=== PATIENT | male | born 1955 | race Caucasian/White ===

== ENCOUNTER → 2020-09-16 11:00 | Outpatient (CLI) | payer MEDICARE, BC, SELFPAY ==
--- NOTE | 2020-09-16 11:03 | CA_ITS ---
APPROVED REPORT EXAM: Comprehensive 2D, Doppler, and color-flow Echocardiogram Gate Tender: Angelique Sanon RT(R) Ht: 6 ft 0 in Wt: 240lbs BSA: 2.30 BP: 114/65 mmHg Indications: cp, smoker, edema, HTN, DM, SOB, AFIB, stents, GERD Echo Enhancing Agent Indication: Endocardial border delineation Agent(s) / Amount(s) Used: Definity 2 cc 2D Dimensions LVOT 1.98 cm (M/F) 1.5-2.5 LVEF (Sal's) 26.90 % M: 52 - 72 LV Volume 134.30 mL M: 62 - 150 LV Volume Index 58.39 mL/m2 M: 34 - 74 LA Volume 96.20 mL LA Volume Index 41.82 mL/m2 (M/F) 16-34 M-Mode Dimensions RVDd 2.81 cm (0.9-2.6) LA Diam 4.90 cm (1.9-4.0) LVDd 4.45 cm (3.5-5.7) Ao Diam 3.53 cm (2.0-3.7) LVDs 3.93 cm (3.5-5.7) IVSd 1.50 cm (0.6-1.1) PWd 0.66 cm (0.6-1.1) EF (Teich) 25.50% FS 11.70% EDV (Teich) 90.10 mL ESV (Teich) 67.10 mL Left Ventricle Technically difficult study because of the patient factors and poor acoustic windows. Definity contrast was utilized to delineate the endocardial surfaces. Left atrium is mildly enlarged, left ventricle is normal size, mild concentric left ventricular hypertrophy, visually estimated ejection fraction approximately 40%, there is marked hypokinesis involving the posterior lateral wall, rest of the myocardial segments are globally hypokinetic. Diastolic parameters are inconclusive. There is no left ventricular thrombus seen. Right Ventricle Right atrium and right ventricle are normal size and contractility. Aortic Valve Aortic valve is thickened and calcified without Doppler evidence of aortic stenosis or aortic insufficiency. Mitral Valve Mitral valve leaflets are minimally thickened, there is mild mitral regurgitation. Tricuspid Valve Tricuspid valve grossly normal, there is mild tricuspid regurgitation, tricuspid regurgitation jet velocity is inadequate for calculation of the right ventricular systolic pressure. Pulmonic Valve Pulmonic valve is poorly visualized. Conclusion 1. Mildly enlarged left atrium, normal left ventricular size, mild concentric left ventricular hypertrophy, visually estimated ejection fraction 40% with segmental wall motion abnormality described above, diastolic parameters are inconclusive. Definity contrast was utilized to delineate the endocardial surfaces, there is no left ventricular thrombus seen. 2. Thickened and calcified aortic valve without aortic stenosis or aortic insufficiency. 3. Mild mitral and tricuspid regurgitation. 4. No significant pericardial effusion noted. Electronically signed by : Jovon Foss, 09/16/2020 21:07:06
[2020-09-16 17:15] LABS: Basophils # 0.1 K/mm3 (0-0.2); Basophils % 1.1 % (0.1-2.0); Eosinophils # 0.4 K/mm3 (0.0-0.4); Hematocrit 36.5 % (42.0-52.0); Hemoglobin 10.8 g/dL (14.1-18.0); Lymphocytes # 2.1 K/mm3 (0.7-4.5); Lymphocytes % 20.6 % (10-50); Mean Corpuscular HGB Conc 29.6 g/dL (31.8-35.4); Mean Corpuscular Hemoglobin 22.1 pg (27.0-31.2); Mean Corpuscular Volume 74.8 fl (80-94); Mean Platelet Volume 7.5 fl (7.4-10.4); Monocytes # 0.7 K/mm3 (0.1-1.0); Monocytes % 6.8 % (1.7-9.3); Neutrophils # 6.8 K/mm3 (1.8-7.8); Neutrophils % 67.4 % (37.0-80.0); Platelet Count 288 K/mm3 (142-424); Red Blood Count 4.88 M/mm3 (4.60-6.20); Red Cell Distribution Width 17.8 % (11.5-17.5)
[2020-09-16 17:18] LABS: Chloride 95 mmol/L (98-107)
[2020-09-16 17:19] LABS: Potassium 5.2 mmoL/L (3.5-5.1); Sodium 137 mmol/L (136-145)
[2020-09-16 17:22] LABS: Anion Gap 16.2 mEq/L (5-15); Blood Urea Nitrogen 13 mg/dl (9-20); Calcium 9.2 mg/dl (8.4-10.2); Carbon Dioxide 31 mmol/L (22.0-30.0); Estimated Glomerular Filt Rate 84 ml/min (>60); GFR (African American) 102 ML/MIN (>60); Glucose 148 mg/dl (74-100)
== END ==
PROVIDERS: Internal Medicine Cardiovascular Disease; PCP Family Medicine; Visit Provider Family Medicine
DX: I48.19 Other persistent atrial fibrillation; R06.00 Dyspnea, unspecified; R07.89 Other chest pain; R61 Generalized hyperhidrosis; Z01.812 Encounter for preprocedural laboratory examination; Z20.822 Contact with and (suspected) exposure to COVID-19; I20.8 Other forms of angina pectoris
CPT/HCPCS: 80048; 85025; 93306; Q9957; U0003

== ENCOUNTER 2020-09-17 08:16 | Day surgery (SDC) | payer MEDICARE, BC, SELFPAY ==
[2020-09-17] VITALS (12 sets, daily range): BP systolic 108–150; BP diastolic 54–90; PULSE 81–106; RESP 17–18; O2SAT 93–99; BMI 32.5
--- NOTE | 2020-09-17 | IR_ITS ---
APPROVED REPORT Patient Location: Outpatient Lumber Tallier: LALITA Mei RT (R) PROCEDURES Left heart catheterization Left ventriculogram Selective coronary angiogram INDICATION Worsening angina pectoris, Chronic atrial fibrillation Informed consent was obtained prior to the procedure. COMPLICATIONS None Estimated Blood Loss: Less than 10 mls TECHNIQUE One percent lidocaine used to anesthetize the right anterior aspect of the wrist. The right radial artery was accessed via the Seldinger technique. A 6 Monegasque sheath was placed in the right radial artery. 2.5 mg of verapamil, 800 mcg of nitroglycerin, 1mg Lidocaine and 5000 U Heparin were given through the arterial sheath. The trap catheter was also used to perform left heart catheterization, left ventriculogram and selective coronary angiogram. At the end of the procedure the sheath was removed good hemostasis was achieved using Traclet band, patient was transferred to the postop holding area in stable condition. ANGIOGRAPHIC RESULTS The left main artery Has a critical distal calcified greater than 90% stenosis The left anterior descending artery Has an ostial 90% stenosis followed by a proximal calcified 80% stenosis. The LAD itself is a large vessel widely patent. The first diagonal artery is patent The circumflex artery Is a dominant system and has an ostial calcified 90% stenosis most likely originating in the left main artery. The remaining vessel is widely patent with the terminal obtuse marginal artery/posterior descending artery having a proximal 80% stenosis and then subtotally occluded at mid vessel. The right coronary artery Vestigial subtotally occluded proximally The SESAY ventriculogram reveals Dilated EF 50% The left ventricular end-diastolic pressure 20 mmHg IMPRESSION Severe to critical distal left main disease as described above Dilated ventricle with ejection fraction 50% Mildly elevated LVEDP PLAN 1. Patient will be referred for CABG evaluation as soon as possible. Electronically signed by : Froylan Carbajal MD 09/17/2020 10:47:52
== END 2020-09-17 13:42 | disposition home or self-care (01) ==
LOC: CATHLAB 08:19
PROVIDERS: PCP Family Medicine; Visit Provider Internal Medicine
DX: I25.118 Atherosclerotic heart disease of native coronary artery with other forms of angina pectoris (principal); I48.20 Chronic atrial fibrillation, unspecified; E11.9 Type 2 diabetes mellitus without complications; Z79.84 Long term (current) use of oral hypoglycemic drugs; I10 Essential (primary) hypertension; K21.9 Gastro-esophageal reflux disease without esophagitis; Z79.01 Long term (current) use of anticoagulants; Z79.899 Other long term (current) drug therapy
CPT/HCPCS: 93458; 99152; C1769; J1644; Q9967

== ENCOUNTER → 2020-11-04 13:07 | Outpatient (CLI) | payer MEDICARE, BC, SELFPAY | PROVIDERS: Visit Provider Internal Medicine Cardiovascular Disease | DX: I25.708 Atherosclerosis of coronary artery bypass graft(s), unspecified, with other forms of angina pectoris; I48.19 Other persistent atrial fibrillation; R06.00 Dyspnea, unspecified; R07.89 Other chest pain; Z86.79 Personal history of other diseases of the circulatory system; Z95.1 Presence of aortocoronary bypass graft; Z98.890 Other specified postprocedural states; Z01.812 Encounter for preprocedural laboratory examination; Z20.822 Contact with and (suspected) exposure to COVID-19 | CPT/HCPCS: C9803; U0003; U0005 ==

== ENCOUNTER 2020-11-06 07:42 | Day surgery (SDC) | payer MEDICARE, BC, SELFPAY ==
[2020-11-06 07:50] VITALS: BMI 28.0
--- NOTE | 2020-11-06 07:59 | CA_ITS ---
APPROVED REPORT EXAM: Comprehensive 2D, Doppler, and color-flow Echocardiogram Kid Club Attendant: Renee NdiayeINDERJIT Ht: 5 ft 11 in Wt: 201lbs BSA: 2.11 BP: 109/70 mmHg Indications: A-FIB/CARDIOVERSION,S/P CABG,S/P MAZE 09/19/20 Procedure After obtaining informed consent, patient underwent transesophageal echo in the Petroleum Analyst. Type of Sedation : Conscious Sedation Sedation was administered by Lyndon Garcia C.R.N.A. Transesophageal probe was inserted and advanced into esophagus without difficulty by Dr. Kevin Ramos. The JOSE was performed without complications. Synchronized Cardioversion attempted: Successful Synchronized Cardioversion acheived with 200 Joules after 1 attempt(s). Rhythm following Synchronized Cardioversion: Normal Sinus Rhythm Throughout the procedure, the blood pressure, pulse oximetry, cardiac rhythm, and rate were monitored. The patient tolerated the procedure without adverse effects. Recovery from conscious sedation was uneventful and vital signs were stable. Left Ventricle Left ventricle is normal size, mild concentric left ventricular hypertrophy, visually estimated ejection fraction of previous approximately 40 to 45% with inferior basal wall hypokinesis. Right Ventricle Right ventricle is normal size and contractility. Atria Left atrium is mildly enlarged, left atrial appendage is ligated, there is no thrombus seen in the left atrium, there is no flow in the left atrial appendage. Right atrium is normal size. Aortic Valve Aortic valve is thickened and calcified without aortic stenosis or aortic insufficiency. Mitral Valve Mitral valve has mitral annular calcification, there is no mitral stenosis, there is mild to moderate mitral regurgitation. Tricuspid Valve Tricuspid valve is grossly normal, there is mild tricuspid regurgitation. Pulmonic Valve Pulmonic valve is grossly normal. Great Vessels Aortic root is normal size. Pericardium No significant pericardial effusion noted. Conclusion 1. Mildly enlarged left atrium, left atrial appendage is ligated, there is no flow in the left atrial appendage, there is no thrombus seen. 2. Normal left ventricular size, mild concentric left ventricular hypertrophy, visually estimated ejection fraction 40 to 45% with segmental wall motion abnormality described above. 3. Mild to moderate mitral regurgitation. 4. No significant pericardial effusion noted. Other ancillary findings as described above 5. Successful electrical DC cardioversion to restore sinus rhythm. 6. Patient tolerated the procedure well. Electronically signed by : Jovon Foss MD 11/06/2020 09:07:17
[2020-11-06 08:02] VITALS: BP 141/92; PULSE 103; PULSE 106; RESP 18; TEMP 36.9; O2SAT 97
[2020-11-06 08:47] VITALS: BP 101/60; PULSE 76; RESP 20; O2SAT 90
[2020-11-06 09:18] VITALS: BP 100/66; PULSE 77; RESP 20; O2SAT 98
--- NOTE | 2020-11-06 09:31 | P.PN_ITS ---
[facility] Anesthesia Checklist - Patient Identification Patient Identification: Verbal (Name & ) - Structural Data Admitted From: Home Planned Operative Procedure/s: JOSE/Cardioversion Consent for Planned Operative Procedure(s) Verified: Yes Verified Documents: Surgical Consent - NPO Status Verified Time NPO: 00:00 - Cardiovascular Assessment Heart Sounds: S1 & S2 Pulse Rhythm: Irregular - Airway Assessment C-Spine Mobility Assessed: Yes TMJ Mobility Assessed: Yes Dentition: Good Dentition - Neurological Assessment Level of Consciousness: Awake, Alert, Appropriate - Anesthesia Plan Anesthesia Risk discussed: Yes ASA Class: III Anesthesia Type: General [facility] History Medical History: Reports:: Atrial Fibrillation, Coronary Artery Disease, Diabetes Mellitus Type 2, Gastroesophageal Reflux Disease(GERD), Hyperlipidemia, Hypertension Denies:: Cancer, Diabetes Mellitus Type 1, Internal Pacemaker, MRSA, Seizures *Have you ever received a pneumonia vaccine?: No *Have you received a flu vaccine this season?: Yes Other Medical History: Reports: Thyroid Disease Anesthesia experience/problems:: no issues Other Surgeries: Yes: CABG, Cardiac Catheterization, Coronary Stent. No: Pacemaker Amputation: No Fractures: No - *Social History Last grade of school completed: 11th or 12th Smoking Status: Never smoker Tobacco Type: cigarettes # Packs/Day (cigarettes): 1 Alcohol Intake: never Alcohol Intake Frequency:: a few times a week Substance Use Type: denies use *Occupational Status:: retired Housing: house Household Members: significant other *Travel in the last 8 weeks: None Family Hx:: Diabetes, Coronary Artery Disease, Heart Attack
== END 2020-11-06 09:21 | disposition home or self-care (01) ==
LOC: CATHLAB 07:45
PROVIDERS: PCP Family Medicine; Visit Provider Internal Medicine Cardiovascular Disease
DX: I25.708 Atherosclerosis of coronary artery bypass graft(s), unspecified, with other forms of angina pectoris (principal); I48.19 Other persistent atrial fibrillation; R06.00 Dyspnea, unspecified; R07.89 Other chest pain; Z86.79 Personal history of other diseases of the circulatory system; Z95.1 Presence of aortocoronary bypass graft; E11.9 Type 2 diabetes mellitus without complications; Z79.84 Long term (current) use of oral hypoglycemic drugs
CPT/HCPCS: 92960; 93312

== ENCOUNTER 2021-01-05 09:01 | Outpatient (RCR) | payer MEDICARE, BC, SELFPAY | END 2021-05-12 14:25 | disposition home or self-care (01) | LOC: PT 09:01 | PROVIDERS: Visit Provider Internal Medicine Cardiovascular Disease | DX: I25.810 Atherosclerosis of coronary artery bypass graft(s) without angina pectoris (principal); Z95.1 Presence of aortocoronary bypass graft | CPT/HCPCS: 93798 ==

== ENCOUNTER → 2022-04-30 09:58 | Outpatient (CLI) | payer MEDICARE, BC, SELFPAY ==
[2022-04-30 10:42] LABS: Basophils # 0.1 K/mm3 (0-0.2); Basophils % 1.1 % (0.1-2.0); Eosinophils # 0.6 K/mm3 (0.0-0.4); Eosinophils % 6.4 % (0.1-12.0); Hematocrit 36.9 % (42.0-52.0); Hemoglobin 11.6 g/dL (14.1-18.0); Lymphocytes # 1.8 K/mm3 (0.7-4.5); Lymphocytes % 20.4 % (10-50); Mean Corpuscular HGB Conc 31.6 g/dL (31.8-35.4); Mean Corpuscular Hemoglobin 25.8 pg (27.0-31.2); Mean Corpuscular Volume 81.7 fl (80-94); Mean Platelet Volume 8.4 fl (7.4-10.4); Monocytes # 0.5 K/mm3 (0.1-1.0); Monocytes % 5.5 % (1.7-9.3); Neutrophils # 5.7 K/mm3 (1.8-7.8); Neutrophils % 66.7 % (37.0-80.0); Platelet Count 336 K/mm3 (142-424); Red Blood Count 4.52 M/mm3 (4.60-6.20); Red Cell Distribution Width 16.6 % (11.5-17.5); White Blood Count 8.6 K/mm3 (4.8-10.8)
[2022-04-30 11:08] LABS: Alanine Aminotransferase 29 U/L (12-78); Albumin Level 4.2 g/dl (3.5-5.0); Alkaline Phosphatase 72 U/L (38-126); Anion Gap 14.2 mEq/L (5-15); Aspartate Amino Transferase 34 U/L (17-59); Bilirubin,Direct 0.3 mg/dl (0.0-0.4); Bilirubin,Indirect 0.8 mg/dL (0.0-0.9); Bilirubin,Total 1.1 mg/dl (0.2-1.3); Bilirubin,Unconjugated 0.8 mg/dL (0.0-1.1); Blood Urea Nitrogen 20 mg/dl (9-20); Carbon Dioxide 29 mmol/L (22.0-30.0); Chloride 101 mmol/L (98-107); Chol/HDL Ratio 3.6 (1-3.5); Cholesterol 144 mg/dl (140-200); Estimated Glomerular Filt Rate 50 ml/min (>60); GFR (African American) 61 ML/MIN (>60); Glucose 141 mg/dl (74-100); HDL Cholesterol 40 mg/dl (40-60); Potassium 4.2 mmoL/L (3.5-5.1); Sodium 140 mmol/L (136-145); Total Protein,Serum 7.2 g/dl (6.3-8.2); Triglycerides 183 mg/dl (30-150); VLDL Cholesterol 37 mg/dL (0-40)
[2022-04-30 11:18] LABS: Direct LDL Cholesterol 83.58 mg/dL (100-129)
[2022-04-30 11:24] LABS: Free T4 (Free Thyroxine) 1.14 ng/dl (0.78-2.19)
[2022-04-30 11:38] LABS: Thyroid Stimulating Hormone 6.75 uIU/mL (0.465-4.68)
== END ==
PROVIDERS: PCP Family Medicine; Visit Provider Internal Medicine Cardiovascular Disease
DX: E78.2 Mixed hyperlipidemia (principal); I25.810 Atherosclerosis of coronary artery bypass graft(s) without angina pectoris; I48.19 Other persistent atrial fibrillation; I50.22 Chronic systolic (congestive) heart failure; R94.31 Abnormal electrocardiogram [ECG] [EKG]; Z86.79 Personal history of other diseases of the circulatory system; Z95.1 Presence of aortocoronary bypass graft; Z98.890 Other specified postprocedural states
CPT/HCPCS: 36415; 80048; 80061; 80076; 83735; 84439; 84443; 85025

== ENCOUNTER → 2022-05-20 08:34 | Outpatient (CLI) | payer MEDICARE, BC, SELFPAY ==
[2022-05-20 08:44] LABS: Microscopic, Urine URINE MICROSCOPIC (MICROSCOPIC)
[2022-05-20 10:00] LABS: Appearance,Urine CLEAR (Clear); Bilirubin,Urine Negative (Negative); Blood, Urine TRACE-I (Negative); Color,Urine YELLOW (Yellow); Glucose,Urine (UA) 3+ (Negative); Ketones,Urine Negative (Negative); Leukocyte Esterase,Urine Negative (Negative); Nitrate,Urine Negative (Negative); PH,Urine 6.5 (5.0-8.5); Protein,Urine Negative (Negative); Urobilinogen,Urine 0.2 EU/dl (0.2)
[2022-05-20 10:11] LABS: RBC,Urine Occasional #/hpf (0-3)
[2022-05-20 10:33] LABS: Anion Gap 16.6 mEq/L (5-15); Blood Urea Nitrogen 17 mg/dl (9-20); Calcium 9.5 mg/dl (8.4-10.2); Carbon Dioxide 28 mmol/L (22.0-30.0); Chloride 97 mmol/L (98-107); Estimated Glomerular Filt Rate 60 ml/min (>60); GFR (African American) 73 ML/MIN (>60); Glucose 152 mg/dl (74-100); Potassium 3.6 mmoL/L (3.5-5.1); Sodium 138 mmol/L (136-145)
== END ==
PROVIDERS: PCP Family Medicine; Visit Provider Internal Medicine Cardiovascular Disease
DX: R79.89 Other specified abnormal findings of blood chemistry (principal)
CPT/HCPCS: 36415; 80048; 81001

== ENCOUNTER 2023-05-20 09:11 | Outpatient (CLI) | payer MEDICARE, BC, SELFPAY ==
[2023-05-20 09:36] LABS: Basophils # 0.1 K/mm3 (0-0.2); Basophils % 1.4 % (0.1-2.0); Eosinophils # 0.6 K/mm3 (0.0-0.4); Eosinophils % 6.1 % (0.1-12.0); Hematocrit 36.6 % (42.0-52.0); Hemoglobin 10.9 g/dL (14.1-18.0); Lymphocytes # 1.7 K/mm3 (0.7-4.5); Lymphocytes % 17.1 % (10-50); Mean Corpuscular HGB Conc 29.9 g/dL (31.8-35.4); Mean Corpuscular Hemoglobin 23.5 pg (27.0-31.2); Mean Corpuscular Volume 78.7 fl (80-94); Mean Platelet Volume 9.2 fl (7.4-10.4); Monocytes # 0.5 K/mm3 (0.1-1.0); Monocytes % 5.1 % (1.7-9.3); Neutrophils # 6.9 K/mm3 (1.8-7.8); Neutrophils % 70.4 % (37.0-80.0); Platelet Count 352 K/mm3 (142-424); Red Blood Count 4.64 M/mm3 (4.60-6.20); Red Cell Distribution Width 18.1 % (11.5-17.5); White Blood Count 9.8 K/mm3 (4.8-10.8)
[2023-05-20 10:45] LABS: Alanine Aminotransferase 25 U/L (12-78); Albumin Level 4.2 g/dl (3.5-5.0); Alkaline Phosphatase 79 U/L (38-126); Anion Gap 13.3 mEq/L (5-15); Aspartate Amino Transferase 37 U/L (17-59); Bilirubin,Direct 0.3 mg/dl (0.0-0.4); Bilirubin,Indirect 0.8 mg/dL (0.0-0.9); Bilirubin,Total 1.1 mg/dl (0.2-1.3); Bilirubin,Unconjugated 0.9 mg/dL (0.0-1.1); Blood Urea Nitrogen 18 mg/dl (9-20); Calcium 9.5 mg/dl (8.4-10.2); Carbon Dioxide 31 mmol/L (22.0-30.0); Chloride 100 mmol/L (98-107); Chol/HDL Ratio 4.7 (1-3.5); Cholesterol 136 mg/dl (140-200); Estimated Glomerular Filt Rate 55 ml/min (>60); GFR (African American) 66 ML/MIN (>60); Glucose 209 mg/dl (74-100); HDL Cholesterol 29 mg/dl (40-60); Magnesium 1.8 mg/dl (1.6-2.3); Potassium 3.3 mmoL/L (3.5-5.1); Sodium 141 mmol/L (136-145); Total Protein,Serum 7.4 g/dl (6.3-8.2); Triglycerides 149 mg/dl (30-150); VLDL Cholesterol 30 mg/dL (0-40)
[2023-05-20 11:01] LABS: Free T4 (Free Thyroxine) 1.17 ng/dl (0.78-2.19)
[2023-05-20 11:07] LABS: Direct LDL Cholesterol 76.45 mg/dL (100-129)
[2023-05-20 11:16] LABS: Thyroid Stimulating Hormone 9.61 uIU/mL (0.465-4.68)
== END 2023-05-20 23:59 ==
LOC: LAB 09:12
PROVIDERS: Visit Provider Physician Assistant
DX: E78.2 Mixed hyperlipidemia (principal); I25.810 Atherosclerosis of coronary artery bypass graft(s) without angina pectoris; R53.83 Other fatigue; Z79.899 Other long term (current) drug therapy
CPT/HCPCS: 36415; 80048; 80061; 80076; 83735; 84439; 84443; 85025

== ENCOUNTER 2023-07-12 08:26 | Outpatient (CLI) | payer MEDICARE, BC, SELFPAY ==
[2023-07-12 09:06] LABS: Basophils # 0.1 K/mm3 (0-0.2); Basophils % 1.3 % (0.1-2.0); Eosinophils # 0.4 K/mm3 (0.0-0.4); Eosinophils % 4.4 % (0.1-12.0); Hematocrit 33.9 % (42.0-52.0); Hemoglobin 10.3 g/dL (14.1-18.0); Lymphocytes # 1.9 K/mm3 (0.7-4.5); Lymphocytes % 20.4 % (10-50); Mean Corpuscular HGB Conc 30.3 g/dL (31.8-35.4); Mean Corpuscular Hemoglobin 23.1 pg (27.0-31.2); Mean Corpuscular Volume 76.2 fl (80-94); Mean Platelet Volume 8.4 fl (7.4-10.4); Monocytes # 0.3 K/mm3 (0.1-1.0); Monocytes % 3.5 % (1.7-9.3); Neutrophils # 6.6 K/mm3 (1.8-7.8); Neutrophils % 70.5 % (37.0-80.0); Platelet Count 382 K/mm3 (142-424); Red Blood Count 4.45 M/mm3 (4.60-6.20); White Blood Count 9.3 K/mm3 (4.8-10.8)
[2023-07-12 10:08] LABS: Prostate Specific Ag Screen 3.5 ng/ml (0.0-4.0); Thyroid Stimulating Hormone 7.21 uIU/mL (0.465-4.68)
[2023-07-12 10:24] LABS: Ferritin 7.28 ng/ml (17.9-464)
[2023-07-13 08:28] LABS: Triiodothyronine (T3) Free 2.9 pg/mL (2.0-4.4)
== END 2023-07-12 23:59 | disposition home or self-care (01) ==
LOC: LAB 08:27
PROVIDERS: PCP Nurse Practitioner Family; Visit Provider Nurse Practitioner Family
DX: D50.9 Iron deficiency anemia, unspecified (principal); E03.9 Hypothyroidism, unspecified; Z12.5 Encounter for screening for malignant neoplasm of prostate
CPT/HCPCS: 82728; 84443; 84481; 85025; G0103

== ENCOUNTER 2023-08-25 08:10 | Outpatient (CLI) | payer MEDICARE, BC, SELFPAY ==
[2023-08-25 08:31] VITALS: BP 112/60; PULSE 68; RESP 18; TEMP 36.6; O2SAT 98
[2023-08-25 09:10] VITALS: BP 128/57; PULSE 67; RESP 18; TEMP 36.6; O2SAT 98
== END 2023-08-25 09:15 | disposition home or self-care (01) ==
LOC: INF 08:12
PROVIDERS: PCP Nurse Practitioner Family; Visit Provider Nurse Practitioner Family
DX: D50.9 Iron deficiency anemia, unspecified (principal)
CPT/HCPCS: 96365; J1439

== ENCOUNTER 2023-09-01 08:08 | Outpatient (CLI) | payer MEDICARE, BC, SELFPAY ==
[2023-09-01 08:13] VITALS: BP 124/62; PULSE 63; RESP 18; TEMP 36.8; O2SAT 96
[2023-09-01 08:55] VITALS: BP 130/62; PULSE 62; RESP 16; TEMP 36.8; O2SAT 96
== END 2023-09-01 09:00 | disposition home or self-care (01) ==
LOC: INF 08:09
PROVIDERS: PCP Nurse Practitioner Family; Visit Provider Nurse Practitioner Family
DX: D50.9 Iron deficiency anemia, unspecified (principal)
CPT/HCPCS: 96365; J1439

== ENCOUNTER 2023-09-16 08:13 | Outpatient (CLI) | payer MEDICARE, BC, SELFPAY ==
[2023-09-16 08:39] LABS: Basophils # 0.1 K/mm3 (0-0.2); Basophils % 1.6 % (0.1-2.0); Eosinophils # 0.4 K/mm3 (0.0-0.4); Eosinophils % 4.8 % (0.1-12.0); Hematocrit 44.7 % (42.0-52.0); Hemoglobin 13.5 g/dL (14.1-18.0); Lymphocytes # 1.7 K/mm3 (0.7-4.5); Lymphocytes % 23.7 % (10-50); Mean Corpuscular HGB Conc 30.2 g/dL (31.8-35.4); Mean Corpuscular Hemoglobin 27.5 pg (27.0-31.2); Mean Corpuscular Volume 90.8 fl (80-94); Mean Platelet Volume 7.9 fl (7.4-10.4); Monocytes # 0.4 K/mm3 (0.1-1.0); Monocytes % 5.7 % (1.7-9.3); Neutrophils # 4.7 K/mm3 (1.8-7.8); Neutrophils % 64.2 % (37.0-80.0); Platelet Count 288 K/mm3 (142-424); Red Blood Count 4.93 M/mm3 (4.60-6.20); White Blood Count 7.4 K/mm3 (4.8-10.8)
[2023-09-16 08:42] LABS: Red Cell Distribution Width 28.7 % (11.5-17.5)
[2023-09-16 09:35] LABS: Iron 124 ug/dL (49-181)
[2023-09-16 09:47] LABS: Total Iron Binding Capacity 381 ug/dL (261-462)
[2023-09-16 09:55] LABS: Free T4 (Free Thyroxine) 1.23 ng/dl (0.78-2.19)
[2023-09-16 10:08] LABS: Thyroid Stimulating Hormone 4.31 uIU/mL (0.465-4.68)
[2023-09-16 10:12] LABS: Ferritin 232 ng/ml (17.9-464)
[2023-09-17 04:39] LABS: Triiodothyronine (T3) Free 2.8 pg/mL (2.0-4.4)
== END 2023-09-16 23:59 | disposition home or self-care (01) ==
LOC: LAB 08:14
PROVIDERS: PCP Nurse Practitioner Family; Visit Provider Nurse Practitioner Family
DX: E03.9 Hypothyroidism, unspecified (principal); R53.83 Other fatigue; D50.9 Iron deficiency anemia, unspecified
CPT/HCPCS: 36415; 82728; 83540; 83550; 84439; 84443; 84481; 85025

== ENCOUNTER 2023-10-26 08:53 | Outpatient (CLI) | payer MEDICARE, BC, SELFPAY ==
[2023-10-26 14:01] LABS: Basophils # 0.1 K/mm3 (0-0.2); Basophils % 1.2 % (0.1-2.0); Eosinophils # 0.4 K/mm3 (0.0-0.4); Eosinophils % 5.3 % (0.1-12.0); Hemoglobin 15.5 g/dL (14.1-18.0); Lymphocytes # 1.9 K/mm3 (0.7-4.5); Lymphocytes % 22.7 % (10-50); Mean Corpuscular HGB Conc 31.6 g/dL (31.8-35.4); Mean Corpuscular Hemoglobin 31.7 pg (27.0-31.2); Mean Corpuscular Volume 100.2 fl (80-94); Mean Platelet Volume 11.1 fl (7.4-10.4); Monocytes # 0.5 K/mm3 (0.1-1.0); Monocytes % 6.6 % (1.7-9.3); Neutrophils # 5.3 K/mm3 (1.8-7.8); Neutrophils % 64.2 % (37.0-80.0); Platelet Count 258 K/mm3 (142-424); Red Blood Count 4.89 M/mm3 (4.60-6.20); Red Cell Distribution Width 22.4 % (11.5-17.5); White Blood Count 8.2 K/mm3 (4.8-10.8)
[2023-10-26 14:32] LABS: Ferritin 65.2 ng/ml (17.9-464)
== END 2023-10-26 23:59 | disposition home or self-care (01) ==
LOC: LAB.DROPOF 10-27 08:57
PROVIDERS: PCP Nurse Practitioner Family; Visit Provider Nurse Practitioner Family
DX: D50.9 Iron deficiency anemia, unspecified (principal); E03.9 Hypothyroidism, unspecified
CPT/HCPCS: 82728; 85025

== ENCOUNTER 2024-06-04 09:40 | Outpatient (CLI) | payer MEDICARE, BC, SELFPAY ==
[2024-06-04 09:58] LABS: Basophils # 0.1 K/mm3 (0-0.2); Basophils % 1.6 % (0.1-2.0); Eosinophils # 0.5 Kmm3 (0.0-0.4); Eosinophils % 6.1 % (0.1-12.0); Hematocrit 48.1 % (42.0-52.0); Hemoglobin 16.6 g/dL (14.1-18.0); Lymphocytes # 1.7 K/mm3 (0.7-4.5); Mean Corpuscular HGB Conc 34.5 g/dL (31.8-35.4); Mean Corpuscular Hemoglobin 34.3 pg (27.0-31.2); Mean Corpuscular Volume 99.4 fl (80-94); Mean Platelet Volume 9.4 fl (7.4-10.4); Monocytes # 0.5 K/mm3 (0.1-1.0); Monocytes % 6.4 % (1.7-9.3); Neutrophils # 4.9 K/mm3 (1.8-7.8); Neutrophils % 63.6 % (37.0-80.0); Nucleated Red Blood Cells # 0 10^3/uL; Nucleated Red Blood Cells % 0 %; Platelet Count 253 K/mm3 (142-424); Red Blood Count 4.84 M/mm3 (4.60-6.20); Red Cell Distribution Width 14.7 % (11.5-17.5); Red Cell Distribution Width-SD 53.7 fL; White Blood Count 7.7 K/mm3 (4.8-10.8)
[2024-06-04 10:31] LABS: Alanine Aminotransferase 25 U/L (12-78); Alkaline Phosphatase 66 U/L (38-126); Anion Gap 13.1 mEq/L (5-15); Aspartate Amino Transferase 34 U/L (17-59); Bilirubin,Direct 0.2 mg/dl (0.0-0.4); Bilirubin,Indirect 1.5 mg/dL (0.0-0.9); Bilirubin,Total 1.7 mg/dl (0.2-1.3); Bilirubin,Unconjugated 1.4 mg/dL (0.0-1.1); Blood Urea Nitrogen 11 mg/dl (9-20); Calcium 9.5 mg/dl (8.4-10.2); Carbon Dioxide 33 mmol/L (22.0-30.0); Chloride 95 mmol/L (98-107); Chol/HDL Ratio 2.6 (1-3.5); Cholesterol 150 mg/dl (140-200); Estimated Glomerular Filt Rate 66 ml/min (>60); GFR (African American) 80 ML/MIN (>60); Glucose 140 mg/dl (74-100); HDL Cholesterol 57 mg/dl (40-60); Magnesium 1.7 mg/dl (1.6-2.3); Potassium 3.1 mmoL/L (3.5-5.1); Sodium 138 mmol/L (136-145); Total Protein,Serum 7.5 g/dl (6.3-8.2); Triglycerides 113 mg/dl (30-150); VLDL Cholesterol 23 mg/dL (0-40)
[2024-06-04 10:59] LABS: Free T4 (Free Thyroxine) 1.31 ng/dl (0.78-2.19)
[2024-06-04 11:14] LABS: Thyroid Stimulating Hormone 5.99 uIU/mL (0.465-4.68)
[2024-06-04 12:01] LABS: Direct LDL Cholesterol 64.25 mg/dL (100-129)
== END 2024-06-04 23:59 | disposition home or self-care (01) ==
LOC: LAB 09:42
PROVIDERS: PCP Nurse Practitioner Family; Visit Provider Internal Medicine
DX: I48.19 Other persistent atrial fibrillation (principal); I25.810 Atherosclerosis of coronary artery bypass graft(s) without angina pectoris; E78.2 Mixed hyperlipidemia; I50.22 Chronic systolic (congestive) heart failure
CPT/HCPCS: 36415; 80048; 80061; 80076; 83735; 84439; 84443; 85025

== ENCOUNTER 2024-06-26 12:13 | Outpatient (CLI) | payer MEDICARE, BC, SELFPAY | END 2024-06-26 23:59 | disposition home or self-care (01) | LOC: LAB.DROPOF 06-28 12:15 | PROVIDERS: PCP Nurse Practitioner Family; Visit Provider Nurse Practitioner Family | DX: R73.9 Hyperglycemia, unspecified (principal) | CPT/HCPCS: 83036 ==

== ENCOUNTER 2024-10-10 09:22 | Outpatient (CLI) | payer MEDICARE, BC, SELFPAY ==
[2024-10-10 13:29] LABS: Hematocrit 46.7 % (42.0-52.0); Hemoglobin 16.0 g/dL (14.1-18.0); Immature Granulocytes % 0.3 %; Mean Corpuscular HGB Conc 34.3 g/dL (31.8-35.4); Mean Corpuscular Hemoglobin 34.0 pg (27.0-31.2); Mean Corpuscular Volume 99.4 fl (80-94); Nucleated Red Blood Cells % 0 %; Platelet Count 312 K/mm3 (142-424); Red Blood Count 4.70 M/mm3 (4.60-6.20); Red Cell Distribution Width-SD 49.7 fL; White Blood Count 11.6 K/mm3 (4.8-10.8)
[2024-10-10 14:05] LABS: Albumin Level 3.9 g/dl (3.5-5.0); Chloride 95 mmol/L (98-107); Sodium 140 mmol/L (136-145)
[2024-10-10 14:06] LABS: Potassium 3.1 mmoL/L (3.5-5.1)
[2024-10-10 14:08] LABS: Alanine Aminotransferase 18 U/L (12-78); Albumin/Globulin Ratio 1.1 (1.1-1.8); Alkaline Phosphatase 82 U/L (38-126); Anion Gap 14.1 mEq/L (5-15); Aspartate Amino Transferase 43 U/L (17-59); Bilirubin,Total 1.2 mg/dl (0.2-1.3); Blood Urea Nitrogen 7 mg/dl (9-20); Carbon Dioxide 34 mmol/L (22.0-30.0); Creatinine,Serum 0.90 mg/dl (0.66-1.25); Estimated Glomerular Filt Rate 83 ml/min (>60); GFR (African American) 101 ML/MIN (>60); Globulin 3.5 g/dL (1.3-3.2); Total Protein,Serum 7.4 g/dl (6.3-8.2)
[2024-10-10 14:09] LABS: Calcium 9.5 mg/dl (8.4-10.2); Cholesterol 153 mg/dl (140-200); Glucose 124 mg/dl (74-100); HDL Cholesterol 52 mg/dl (40-60); Triglycerides 122 mg/dl (30-150)
[2024-10-10 14:40] LABS: Thyroid Stimulating Hormone 3.17 uIU/mL (0.465-4.68)
[2024-10-10 14:43] LABS: Ferritin 131 ng/ml (17.9-464)
--- OUTSIDE RECORDS SUMMARY | 2024-10-11 14:23 | XMS_ITS | Encounter Summary ---
Author Organization [facility] Address [address] [place] [address] Care Team Providers Care Legal Executive Name Role Phone Osvaldo Ludwig MD Primary Care Provider + Reason for Visit * Reason Comments Med Refill Encounter Details Date Type Department Care Team (Late st Contact Info) Description 10/13/2020 Refill [facility] [address] [place] [id number] Nancy Salas, IRAIS [address] [place] [address] Med Refill Social History Tobacco Use Types Packs/Day Years Used Date Smoking Tobacco: Former Cigarettes 0.5 50 0 09/17/1970 - 09/17/2020 Smokeless Tobacco: Never Comments:1/2 ppd for the las t 50 years Alcohol Use Standard Drinks/Week Comments Yes 0 (1 standard drink = 0.6 oz pur e alcohol) social Sex and Gender Information Value Date Recorded Sex Assigned at Not on file Legal Sex Male 11:09 AM EDT Gender Identity Not on file Sexual Orientation Not on file Occupation Industry Job Start Date Job End Date [employer] Not on file Not on file Not on file documented as of this encounter Plan of Treatment Not on file documented as of this encounter Visit Diagnoses Not on filedocumented in this encounter Care Teams Legal Executive Relationship Specialty Start Date End Date Osvaldo Ludwig MD PCP - General Family Medicine 09/18/20 documented as of this encounter
--- OUTSIDE RECORDS SUMMARY | 2024-10-11 14:23 | XMS_ITS | Clinical Summary ---
Author Organization [facility] Address [address] [place] [address] Care Team Providers Care Renal Technician Name Role Phone Osvaldo Ludwig MD Primary Care Provider + Allergies No known active allergies Medications atorvastatin (LIPITOR) 80 MG tablet Take 80 mg by mouth Daily. 09/05/2020 Active loratadine (CLARITIN) 10 MG tablet Take 10 mg by mouth Daily As Needed. 09/05/2020 Active metFORMIN (GLUCOPHAGE) 500 MG tablet Take 500 mg by mouth 2 (Two) Times a Day With Meals. 09/05/2020 Active fluticasone (FLONASE) 50 MCG/ACT nasal spray 2 sprays into the nostril(s) as directed by provider Daily. Active esomeprazole (nexIUM) 20 MG capsule Take 20 mg by mouth Every Morning Before Breakfast. Active aspirin EC 325 MG tablet Take 1 tablet by mouth Daily. 90 tablet 09/25/2020 10:16 AM EDT 09/26/2020 Active carvedilol (COREG) 3.125 MG tablet Take 1 tablet by mouth 2 (Two) Times a Day With Meals. 90 tablet 09/25/2020 10:16 AM EDT 09/25/2020 Active amiodarone (PACERONE) 200 MG tablet Take 1 tablet by mouth Daily. 30 tablet 1 09/29/2020 Active amiodarone (PACERONE) 200 MG tablet Take 1 tablet by mouth Daily. 60 tablet 10/13/2020 Active apixaban (Eliquis) 5 MG tablet tablet Take 1 tablet by mouth Every 12 (Twelve) Hours. Do not start until October 02 90 tablet 09/25/2020 Active carvedilol (COREG) 3.125 MG tablet Take 1 tablet by mouth 2 (Two) Times a Day With Meals. 60 tablet 09/25/2020 Active furosemide (LASIX) 40 MG tablet Take 1 tablet by mouth 2 (Two) Times a Day. Take twice daily for a week, then only once daily for a week. 30 tablet 09/25/2020 Active ferrous sulfate 325 (65 FE) MG tablet Take 325 mg by mouth Daily With Breakfast. PT is taking 65mg 2x a day Active omeprazole (priLOSEC) 20 MG capsule 10/13/2020 Active metoprolol succinate XL (TOPROL-XL) 50 MG 24 hr tablet Daily. 12/10/2020 Act melissa Jardiance 10 MG tablet tablet Daily. 12/01/2020 Activ e Active Problems Problem Noted Date Diagnosed Date T2DM on metformin 09/19/2020 Class 1 obesity in adult 09/19/2020 Essential hypertension 09/19/2020 Hyperlipidemia LDL goal <70 09/19/2020 Chronic systolic heart failure 09/19/2020 MV CAD s/p CABG 09/19/2020 09/18/2020 Overview (09/20/2020): Cardiac catheterization (09/17/2020): Severe distal left main disease with left dominant coronary circulation. CABG by Braden Lainez (09/19/2020): EASON to LAD, SVG to L PDA, SVG to OM Paroxysmal atrial fibrillation 09/18/2020 Overview (09/20/2020): Diagnosed 08/2020 Echo (09/16/2020): LVEF 40%. No significant valve abnormality Status post Contreras maze 4 and left atrial appendage ligation by Braden Lainez, 09/18/2020 Cigarette nicotine dependence without complicati on 09/18/2020 Resolved Problems Problem Noted Date Diagnosed Date Resolved Date On continuous oral anticoagulation (Eliquis) 09/20/2020 Family History Medical History Relation Name Comments Heart attack Father Cancer Mother Relation Name Status Comments Father Mother Alive Social History Tobacco Use Types Packs/Day Years Used Date Smoking Tobacco: Former Cigarettes 0.5 50 0 09/17/1970 - 09/17/2020 Smokeless Tobacco: Never Comments:1/2 ppd for the las t 49 years Alcohol Use Standard Drinks/Week Comments Yes 0 (1 standard drink = 0.6 oz pur e alcohol) social Abuse Screen Answer Date Recorded Unsafe at Home or Work/School Not on file Feels Threatened by Someone? Not on file 10/2022 Does Anyone Keep You from Co ntacting Others or Doint Things Outside the Home? Not on file 11/22/2022 Physical Sign of Abuse Present Not on file 1 Housing Stability Answer Date Recorded Current Living Arrangements Not on file 10/2022 Potentially Unsafe Housing Conditions Not on brit e 11/22/2022 Family and Community Support Answer Milo e Recorded Help with Day-to-Day Activities Not on file 11/22/2022 Lonely or Isolated Not on file 11/22/2022 Employment Answer Date Recorded Do you want help finding or keeping work or a jean claude b? Not on file 11/22/2022 Disabilities Answer Date Recorded Concentrating, Remembering, or Making Decisions Difficulty Not on file 11/22/2022 Doing Errands Independently Difficulty Not on fi le 11/22/2022 Education Answer Date Recorded Help with school or training? Not on file Preferred Language Not on file 11/22/2022 Sex and Gender Information Value Date Recorded Sex Assigned at Not on file Legal Sex Male 11:09 AM EDT Gender Identity Not on file Sexual Orientation Not on file Occupation Industry Job Start Date Job End Date [employer] Not on file Not on file Not on file Last Filed Vital Signs Vital Sign Reading Time Taken Comments Blood Pressure 140/80 01/01/2021 8:42 AM EST Pulse 76 01/01/2021 8:42 AM EST Temperature 36.2 C (97.1 F) 01/01/2021 8:42 AM EST Respiratory Rate 20 09/30/2020 10:23 AM EDT Oxygen Saturation 98% 01/01/2021 8:42 AM EST Inhaled Oxygen Concentration - - Weight 89.4 kg (197 lb) 01/01/2021 8:42 AM EST Height 180.3 cm (5' 11 ) 01/01/2021 8:42 AM EST Body Mass Index 27.48 01/01/2021 8:42 AM EST Plan of Treatment Health Maintenance Due Date Last Done Comments TDAP/TD VACCINES (1 - Tdap) 1973 COLOGUARD 1999 COLON CANCER SCREENING 5 YEAR SIGMOIDOSCOPY 1999 COLONOSCOPY 1999 COLORECTAL CANCER SCREENING 1999 CT COLONOGRAPHY 1999 FECAL OCCULT BLOOD TEST 1999 FIT Testing (1 year) 1999 ZOSTER VACCINE (1 of 2) 01/13/2004 Pneumococcal Vaccine 50+ (2 of 2 - PCV) 07/03/2016 0 07/04/2015 AAA SCREEN ONCE 2019 ANNUAL PHYSICAL 09/18/2020 HEPATITIS C SCREENING 09/18/2020 LIPID PANEL 09/18/2021 09/18/2020 COVID-19 Vaccine ( - season) 10/16/202311/2020 INFLUENZA VACCINE 11/14/2024 11/14/2019 HEMOGLOBIN A1C Discontinued 09/18/2020 Medical Devices Implanted Type Area Claims Sorter Device Identifier Shelf Expiration Date Model / Serial / Lot Appl Clip Jenny Atriclip Flx 45mm - [id number] Implanted:Qty : 1 on 09/19/2020 by Braden Lainez MD at [facility] Implant N/A: Heart [employer] [id number] 06/15/2023 [id number] / / [id number] [employer] Radiomark Disk Ro Conchita - [id number] Implanted:Qty : 1 on 09/19/2020 by Braden Lainez MD at [facility] Implant N/A: Heart [employer] [id number] 05/28/2025 [id number] / / [id number] [facility] Radiomark Disk Ro Conchita - [id number] Implanted:Qty : 1 on 09/19/2020 by Braden Lainez MD at [facility] Implant N/A: Heart [employer] [id number] 02/28/2025 [id number] / / [id number] Explanted Type Area Claims Sorter Device Identifier Shelf Expiration Date Model / Serial / Lot Appl Clip Jenny Atriclip Flx 40mm - [id number] Explanted:Qty : 1 on 09/19/2020 by Braden Lainez MD at [facility] Implant N/A: Heart ATR[employer]URE [id number] 06/15/2023 [id number] / / [id number] Procedures Procedure Name Priority Date/Time Associated Diagnosis Comments HEMOGLOBIN A1C Routine 09/18/2020 3:04 PM EDT LIPID PANEL Routine 09/18/2020 3:04 PM EDT from Last 3 Months or Most Recently Relevant to Health Maintenance Results * (ABNORMAL) Hemoglobin A1c (09/18/2020 3:04 PM EDT) Hemoglobin A1C 7.70(H) 4.80 - 5.60 % 09/18/2020 3:52 PM EDT [facility] Blood Venipuncture / Unknown 09/18/2020 3:04 PM EDT 09/18/2020 3:24 PM EDT Narrative [facility] - 09/18/2020 3:52 PM EDT Hemoglobin A1C Ranges: Increased Risk for Diabetes 5.7% to 6.4% Diabetes >= 6.5% Diabetic Goal < 7.0% [facility] BLOOD ORDERABLES Final Res ult [facility]
[address] [place] [address], * (ABNORMAL) Lipid Panel (09/18/2020 3:04 PM EDT) Total Cholesterol 115 0 - 200 mg/dL 09/18/2020 3:58 PM EDT [facility] Triglycerides 126 0 - 150 mg/dL 09/18/2020 3:58 PM EDT [facility] HDL Cholesterol 30(L) 40 - 60 mg/dL 09/18/2020 3:58 PM EDT [facility] LDL Cholesterol 62 0 - 100 mg/dL 09/18/2020 3:58 PM EDT [facility] VLDL Cholesterol 23 5 - 40 mg/dL 09/18/2020 3:58 PM EDT [facility] LDL/HDL Ratio 1.99 09/18/2020 3:58 PM EDT [facility] Blood Venipuncture / Unknown 09/18/2020 3:04 PM EDT 09/18/2020 3:25 PM EDT Narrative [facility] - 09/18/2020 3:58 PM EDT Cholesterol Reference Ranges (U.S. Department of Health and Human Services ATP III Classifications) Desirable <200 mg/dL Borderline High 200-239 mg/dL High Risk >240 mg/dL Triglyceride Reference Ranges (U.S. Department of Health and Human Services ATP III Classifications) Normal <150 mg/dL Borderline High 150-199 mg/dL High 200-499 mg/dL Very High >500 mg/dL HDL Reference Ranges (U.S. Department of Health and Human Services ATP III Classifcations) Low <40 mg/dl (major risk factor for CHD) High >60 mg/dl ('negative' risk factor for CHD) LDL Reference Ranges (U.S. Department of Health and Human Services ATP III Classifcations) Optimal <100 mg/dL Near Optimal 100-129 mg/dL Borderline High 130-159 mg/dL High 160-189 mg/dL Very High >189 mg/dL [facility] BLOOD ORDERABLES Final Res ult [facility]
[address] [place] [address], from Last 3 Months or Most Recently Relevant to Health Maintenance Insurance MEDICARE A & B [facility]NY CUELLAR Advance Directives * CPR (Attempt to Resuscitate) (Latest Code Status on File) Date Activated Date Inactivated Comments 09/19/2020 4:12 PM 09/25/2020 1:53 PM Question Answer Comments Code Status (Patient has no pulse and is not breathing): CPR (Attempt to Resuscitate) Medical Interventions (Patie nt has pulse or is breathing): Full * CPR (Attempt to Resuscitate) Date Activated Date Inactivated Comments 09/18/2020 5:37 PM 09/19/2020 4:12 PM Question Answer Comments Code Status (Patient has no pulse and is not breathing): CPR (Attempt to Resuscitate) Medical Interventions (Patie nt has pulse or is breathing): Full Level Of Support Discussed With: Patient * CPR (Attempt to Resuscitate) Date Activated Date Inactivated Comments 09/18/2020 5:27 PM 09/18/2020 5:37 PM Question Answer Comments Code Status (Patient has no pulse and is not breathing): CPR (Attempt to Resuscitate) Medical Interventions (Patie nt has pulse or is breathing): Full Level Of Support Discussed With: Patient Care Teams Renal Technician Relationship Specialty Start Date End Date Osvaldo Ludwig MD PCP - General Family Medicine 09/18/20
[2024-10-12 12:17] LABS: Triiodothyronine (T3) Free 3.0 pg/mL (2.0-4.4)
== END 2024-10-10 23:59 | disposition home or self-care (01) ==
LOC: LAB.DROPOF 10-11 14:21
PROVIDERS: PCP Nurse Practitioner Family; Visit Provider Nurse Practitioner Family
DX: I25.810 Atherosclerosis of coronary artery bypass graft(s) without angina pectoris (principal); E78.2 Mixed hyperlipidemia; E03.9 Hypothyroidism, unspecified; D50.9 Iron deficiency anemia, unspecified
CPT/HCPCS: 80053; 80061; 82043; 82570; 82728; 84443; 84481; 85025

== ENCOUNTER 2024-12-17 07:39 | Outpatient (CLI) | payer MEDICARE, BC, SELFPAY ==
--- OUTSIDE RECORDS SUMMARY | 2024-12-17 07:41 | XMS_ITS | Encounter Summary ---
Author Organization [facility] Address [address] [place] [address] Care Team Providers Care Appeals And Generalist Clerk Name Role Phone Osvaldo Ludwig MD Primary Care Provider + Reason for Visit * Reason Comments Med Refill Encounter Details Date Type Department Care Team (Late st Contact Info) Description 10/13/2020 Refill [facility] [address] [place] [id number] Nancy Salas, IRAIS [address] [facility] [address] [place] [address] Med Refill Social History Tobacco Use Types [...] on filedocumented in this encounter Care Teams Appeals And Generalist Clerk Relationship Specialty Start Date End Date Osvaldo Ludwig MD PCP - General Family Medicine 09/18/20 documented as of this encounter
--- OUTSIDE RECORDS SUMMARY | 2024-12-17 07:41 | XMS_ITS | Clinical Summary ---
Author Organization [facility] Address [address] [place] [address] Care Team Providers Care Device Engineer Name Role Phone Osvaldo Ludwig MD Primary [...] C SCREENING 09/18/2020 LIPID PANEL 09/18/2021 09/18/2020 INFLUENZA VACCINE 09/14/2024 11/14/2019 COVID-19 Vaccine (2 - season) 10/15/202411/2020 HEMOGLOBIN A1C Discontinued 09/18/2020 Medical Devices Implanted Type Area Restaurant Server Device Identifier Shelf Expiration Date Model / Serial / Lot Appl Clip Jenny Atriclip Flx 45mm - [id number] Implanted:Qty : 1 on 09/19/2020 by Braden Lainez MD at [facility] Implant N/A: Heart [employer] [id number] 06/15/2023 [id number] / / [id number] [employer] Radiomark Disk Ro Con[place]ita - [id number] Implanted:Qty : 1 on 09/19/2020 by Braden Lainez MD at [facility] Implant N/A: Heart [employer] [id number] 05/28/2025 [id number] / / [id number] [facility] Radiomark Disk Ro Conchita - [id number] Implanted:Qty : 1 on 09/19/2020 by Braden Lainez MD at [facility] Implant N/A: Heart [employer] [id number] 02/28/2025 [id number] / / [id number] Explanted Type Area Restaurant Server Device Identifier Shelf Expiration Date Model / Serial / Lot Appl Clip Jenny Atriclip Flx 40mm - [id number] Explanted:Qty : 1 on 09/19/2020 by Braden Lainez MD at [facility] Implant N/A: Heart [employer] [id number] 06/15/2023 [id number] / / [id number] Procedures Procedure Name Priority Date/Time Associated Diagnosis Comments HEMOGLOBIN A1C Routine 09/18/2020 3:04 PM EDT LIPID PANEL Routine 09/18/2020 3:04 PM EDT from Last 3 Months or Most Recently Relevant to Health Maintenance Results * (ABNORMAL) Hemoglobin A1c (09/18/2020 3:04 PM EDT) Hemoglobin A1C 7.70(H) 4.80 - 5.60 % 09/18/2020 3:52 PM EDT [facility] Blood Venipuncture / Unknown 09/18/2020 3:04 PM EDT 09/18/2020 3:24 PM EDT Narrative [facility] - 09/18/2020 3:52 PM EDT Hemoglobin A1C Ranges: Increased Risk for Diabetes 5.7% to 6.4% Diabetes >= 6.5% Diabetic Goal < 7.0% [facility] BLOOD ORDERABLES Final Res ult [facility]
[address] [place] [address], * (ABNORMAL) Lipid Panel (09/18/2020 3:04 PM EDT) Total Cholesterol 115 0 - 200 mg/dL 09/18/2020 3:58 PM EDT [facility] Triglycerides 126 0 - 150 mg/dL 09/18/2020 3:58 PM EDT [facility] HDL Cholesterol 30(L) 40 - 60 mg/dL 09/18/2020 3:58 PM EDT [facility] LDL Cholesterol 62 0 - 100 mg/dL 09/18/2020 3:58 PM EDT [facility] VLDL Cholesterol 23 5 - 40 mg/dL 09/18/2020 3:58 PM EDT [facility] LDL/HDL Ratio 1.99 09/18/2020 3:58 PM EDT [facility] Blood Venipuncture / Unknown 09/18/2020 3:04 PM EDT 09/18/2020 3:25 PM EDT Narrative [facility] - 09/18/2020 3:58 PM EDT Cholesterol [...] [facility] BLOOD ORDERABLES Final Res ult [facility]
[address] [place] [address], from Last 3 Months or Most Recently Relevant to Health Maintenance Insurance MEDICARE A & B [facility] DONNY CUELLAR Advance Directives * CPR (Attempt [...] Of Support Discussed With: Patient Care Teams Device Engineer Relationship Specialty Start Date End Date Osvaldo Ludwig MD PCP - General Family Medicine 09/18/20
--- NOTE | 2024-12-17 08:00 | CA_ITS ---
APPROVED REPORT EXAM: Comprehensive 2D, Doppler, and color-flow Echocardiogram Team Lead: Renee Ndiaye RVT Ht: 5 ft 11 in Wt: 178lbs BSA: 2.01 BP: 117/72 mmHg Indications: CORONARY ARTERY DISEASE,ABNORMAL EKG 2D Dimensions LA Volume 58.10 mL LA Volume Index 28.91 mL/m2 (M/F) 16-34 M-Mode Dimensions RVDd 3.35 cm (0.9-2.6) LA Diam 4.30 cm (1.9-4.0) LVDd 5.36 cm (3.5-5.7) LVDs 4.06 cm (3.5-5.7) IVSd 1.96 cm (0.6-1.1) PWd 0.76 cm (0.6-1.1) EF (Teich) 47.80% FS 24.30% EDV (Teich) 138.90 mL TAPSE 1.04 (<1.7) ESV (Teich) 72.50 mL LV Diastology E Decel Time 267 (160-240 msec) E/A Ratio 0.6 Aortic Valve MILIND Index 1.54 cm2/m2 AoV Peak Aryan. 120.0 (50-130 cm/s) AO Peak GR. 5.70 mmHg AO Mean GR. 3.10 (<5 mmHg) AO VTI 19.1 (18-25 cm) MILIND (VTI) 3.18 (2.5-4.5 cm2) Mitral Valve MV E Max Aryan. 46.0 (40-130 cm/s) MV A Velocity 77.0 (40-130 cm/s) E/A Ratio 0.59 MV PHT 78.0 ms Pulmonary Valve PV Peak Velocity 77.0 (50-150 cm/s) Left Ventricle The left ventricle is normal size. Left ventricular systolic function is mildly to moderately reduced. There is normal left ventricular wall thickness. There is severe hypokinesis of the lateral, anterolateral, and inferolateral LV rea. The left ventricular diastolic function is normal. LVEF is 40% Right Ventricle The right ventricle is mildly dilated. The right ventricular systolic function is mildly reduced. Atria Left atrium is mildly dilated. Right atrium is mildly dilated. There is no color Doppler evidence of interatrial shunt. Aortic Valve The aortic valve is mildly thickened. There is no hemodynamically significant aortic valvular stenosis. Trace aortic regurgitation is present. Mitral Valve The mitral valve is normal in structure. No evidence of mitral valve stenosis. Mild mitral regurgitation is present. Tricuspid Valve The tricuspid valve leaflets are thin and pliable. Trace tricuspid regurgitation. There is insufficient TR jet to estimate RVSP. Pulmonic Valve The pulmonary valve is grossly normal in structure. Trace pulmonic valve regurgitation is present. Great Vessels The aortic root is normal in size. IVC is normal in size and collapses >50% with inspiration. Pericardium There is no pericardial effusion. Other Information Study Quality: Fair Conclusion Mild to moderate reduction in LV systolic function (LVEF 40%). Severe hypokinesis of the lateral, anterolateral, and inferolateral LV rea. Mild RV dilation with mild reduction in RV function. Mild biatrial dilation. Mild MR. Electronically signed by : Chantell Nino MD 12/19/2024 00:14:31
== END 2024-12-17 23:59 | disposition home or self-care (01) ==
LOC: RT 07:40
PROVIDERS: PCP Nurse Practitioner Family; Visit Provider Nurse Practitioner
DX: I34.0 Nonrheumatic mitral (valve) insufficiency (principal); I50.20 Unspecified systolic (congestive) heart failure; I25.10 Atherosclerotic heart disease of native coronary artery without angina pectoris; R94.31 Abnormal electrocardiogram [ECG] [EKG]; R93.1 Abnormal findings on diagnostic imaging of heart and coronary circulation
CPT/HCPCS: 93306